=== PATIENT | female | born 1980 | race Caucasian/White ===

== ENCOUNTER 2020-04-14 08:00 | Outpatient (CLI) | payer OTHER ==
[2020-04-14 12:10] LABS: ALBUMIN 4.5 g/dL (3.2-5.5); ALBUMIN/GLOBULIN RATIO 1.5 (1.0-2.2); ALKALINE PHOSPHATASE 45 IU/L (42-121); ALT ALANINE AMINOTRANSFERASE 26 IU/L (10-60); AST ASPARTATE AMINOTRANSFERASE 24 IU/L (10-42); BASOPHILS % (AUTO) 0.4 %; BILIRUBIN,TOTAL 0.8 mg/dL (0.2-1.0); BUN - BLOOD UREA NITROGEN 9 mg/dL (6-20); CALCIUM 8.8 mg/dL (8.5-10.3); CARBON DIOXIDE - CO2 26 mmol/L (21-32); CHLORIDE 104 mmol/L (101-111); CHOL/HDL RATIO 2.9 (<4.4); CHOLESTEROL 192 mg/dL; CREATININE 0.7 mg/dL (0.4-1.0); EOSINOPHILS % (AUTO) 0.7 %; GLUCOSE 91 mg/dL (70-100); HDL CHOLESTEROL 67 mg/dL; HGB - HEMOGLOBIN 13.2 g/dL (12.0-16.0); LDL CHOLESTEROL,CALCULATED 115 mg/dL; LDL/HDL RATIO 1.7 (<4.4); LYMPHOCYTES # (AUTO) 2.3 10^3/uL (1.5-3.5); LYMPHOCYTES % (AUTO) 39.9 %; MEAN CORPUSCULAR HEMOGLOBIN 30.1 pg (27.0-31.0); MEAN CORPUSCULAR HGB CONC 33.1 g/dL (32.0-36.0); MEAN CORPUSCULAR VOLUME 90.9 fL (81.0-99.0); MEAN PLATELET VOLUME 12.5 fL (7.9-10.8); MONOCYTES # (AUTO) 0.5 10^3/uL (0.0-1.0); NEUTROPHILS # (AUTO) 2.9 10^3/uL (1.5-6.6); NEUTROPHILS % (AUTO) 50.8 %; PLT - PLATELET COUNT 135 10^3/uL (130-450); RED BLOOD COUNT 4.39 10^6/uL (4.20-5.40); RED CELL DISTRIBUTION WIDTH 12.7 % (12.0-15.0); SODIUM 139 mmol/L (135-145); TOTAL PROTEIN 7.5 g/dL (6.7-8.2); VLDL CHOLESTEROL 10 mg/dL; WHITE BLOOD COUNT 5.6 x10^3/uL (4.8-10.8)
== END 2020-04-14 23:59 | disposition home or self-care (01) ==
LOC: LAB.WCP 08:00
PROVIDERS: ATTEND Physician Assistant
DX: Z00.00 Encounter for general adult medical examination without abnormal findings (principal)
CPT/HCPCS: 36415; 80053; 80061; 83721; 84443; 85025

== ENCOUNTER 2021-07-31 09:56 | Outpatient (CLI) | payer BC, OTHER ==
[2021-07-31 11:52] LABS: BILIRUBIN,URINE NEGATIVE (NEGATIVE); GLUCOSE, URINE (UA) NEGATIVE (NEGATIVE); KETONES,URINE (UA) NEGATIVE (NEGATIVE); LEUKOCYTE ESTERASE, URINE NEGATIVE (NEGATIVE); NITRITE,URINE NEGATIVE (NEGATIVE); OCCULT BLOOD,URINE NEGATIVE (NEGATIVE); PROTEIN,URINE NEGATIVE (NEGATIVE); UROBILINOGEN,URINE 0.2 (NORMAL) E.U./dL (NORMAL)
[2021-07-31 12:04] LABS: BASOPHILS % (AUTO) 0.4 %; EOSINOPHILS % (AUTO) 0.4 %; HCT - HEMATOCRIT 41.8 % (37.0-47.0); HGB - HEMOGLOBIN 13.7 g/dL (12.0-16.0); LYMPHOCYTES # (AUTO) 2.3 10^3/uL (1.5-3.5); LYMPHOCYTES % (AUTO) 32.2 %; MEAN CORPUSCULAR HEMOGLOBIN 29.3 pg (27.0-31.0); MEAN CORPUSCULAR HGB CONC 32.8 g/dL (32.0-36.0); MEAN CORPUSCULAR VOLUME 89.5 fL (81.0-99.0); MEAN PLATELET VOLUME 12.2 fL (7.9-10.8); MONOCYTES # (AUTO) 0.5 10^3/uL (0.0-1.0); MONOCYTES % (AUTO) 6.9 %; NEUTROPHILS # (AUTO) 4.3 10^3/uL (1.5-6.6); NEUTROPHILS % (AUTO) 59.8 %; PLT - PLATELET COUNT 187 10^3/uL (130-450); RED BLOOD COUNT 4.67 10^6/uL (4.20-5.40); RED CELL DISTRIBUTION WIDTH 12.8 % (12.0-15.0); WHITE BLOOD COUNT 7.2 x10^3/uL (4.8-10.8)
[2021-07-31 12:26] LABS: CLARITY,URINE HAZY (CLEAR)
[2021-07-31 12:27] LABS: ALBUMIN 4.8 g/dL (3.2-5.5); ALBUMIN/GLOBULIN RATIO 1.4 (1.0-2.2); ALKALINE PHOSPHATASE 47 IU/L (42-121); ALT ALANINE AMINOTRANSFERASE 20 IU/L (10-60); AST ASPARTATE AMINOTRANSFERASE 18 IU/L (10-42); BILIRUBIN,TOTAL 0.6 mg/dL (0.2-1.0); BUN - BLOOD UREA NITROGEN 15 mg/dL (6-20); CALCIUM 9.4 mg/dL (8.5-10.3); CARBON DIOXIDE - CO2 27 mmol/L (21-32); CHLORIDE 100 mmol/L (101-111); CHOL/HDL RATIO 2.5 (<4.4); CHOLESTEROL 218 mg/dL; CREATININE 0.8 mg/dL (0.4-1.0); GFR - MDRD 80 (>89); GLUCOSE 95 mg/dL (70-100); HDL CHOLESTEROL 86 mg/dL; LDL CHOLESTEROL,CALCULATED 123 mg/dL; LDL/HDL RATIO 1.4 (<4.4); POTASSIUM 3.9 mmol/L (3.5-5.0); SODIUM 137 mmol/L (135-145); TOTAL PROTEIN 8.3 g/dL (6.7-8.2); TRIGLYCERIDES 45 mg/dL; VLDL CHOLESTEROL 9 mg/dL
[2021-07-31 12:35] LABS: THYROID STIMULATING HORMONE 2.15 uIU/mL (0.34-5.60)
[2021-07-31 13:50] LABS: RBC,URINE 0-5 /HPF (0-5); SQUAMOUS EPITHELIAL CELL,UR FEW Squamous (<= Few); WBC,URINE 0-3 /HPF (0-5)
[2021-07-31 13:51] LABS: AMORPHOUS SEDIMENT,UR Marked /LPF; BACTERIA,URINE Few /HPF (None Seen)
== END 2021-07-31 09:57 | disposition home or self-care (01) ==
LOC: LAB.N 09:56
PROVIDERS: ATTEND Nurse Practitioner
DX: R53.83 Other fatigue (principal); Z13.220 Encounter for screening for lipoid disorders; F32.A Depression, unspecified
CPT/HCPCS: 36415; 80053; 80061; 81001; 83721; 84443; 85025; 87086

== ENCOUNTER 2022-07-16 08:47 | Outpatient (CLI) | payer OTHER ==
[2022-07-16 09:29] LABS: BASOPHILS % (AUTO) 0.7 %; EOSINOPHILS % (AUTO) 0.4 %; HCT - HEMATOCRIT 41.2 % (37.0-47.0); HGB - HEMOGLOBIN 13.2 g/dL (12.0-16.0); LYMPHOCYTES # (AUTO) 1.7 10^3/uL (1.5-3.5); MEAN CORPUSCULAR HEMOGLOBIN 28.6 pg (27.0-31.0); MEAN CORPUSCULAR VOLUME 89.2 fL (81.0-99.0); MEAN PLATELET VOLUME 12.6 fL (7.9-10.8); MONOCYTES # (AUTO) 0.4 10^3/uL (0.0-1.0); MONOCYTES % (AUTO) 8.1 %; NEUTROPHILS # (AUTO) 2.3 10^3/uL (1.5-6.6); NEUTROPHILS % (AUTO) 51.6 %; PLT - PLATELET COUNT 161 10^3/uL (130-450); RED BLOOD COUNT 4.62 10^6/uL (4.20-5.40); RED CELL DISTRIBUTION WIDTH 12.7 % (12.0-15.0); WHITE BLOOD COUNT 4.5 x10^3/uL (4.8-10.8)
[2022-07-16 10:16] LABS: ALBUMIN 4.6 g/dL (3.2-5.5); ALBUMIN/GLOBULIN RATIO 1.5 (1.0-2.2); BILIRUBIN,TOTAL 0.6 mg/dL (0.2-1.0); CALCIUM 9.3 mg/dL (8.5-10.3); CREATININE 0.6 mg/dL (0.4-1.0); POTASSIUM 3.9 mmol/L (3.5-5.0); TOTAL PROTEIN 7.6 g/dL (6.7-8.2)
[2022-07-16 11:57] LABS: BILIRUBIN,URINE NEGATIVE (NEGATIVE); GLUCOSE, URINE (UA) NEGATIVE (NEGATIVE); KETONES,URINE (UA) NEGATIVE (NEGATIVE); LEUKOCYTE ESTERASE, URINE NEGATIVE (NEGATIVE); NITRITE,URINE NEGATIVE (NEGATIVE); OCCULT BLOOD,URINE LARGE (NEGATIVE); PH,URINE 6.5 PH (5.0-7.5); PROTEIN,URINE NEGATIVE (NEGATIVE); UROBILINOGEN,URINE 0.2 (NORMAL) E.U./dL (NORMAL)
[2022-07-16 12:24] LABS: BACTERIA,URINE Few /HPF (None Seen); CLARITY,URINE CLEAR (CLEAR); SQUAMOUS EPITHELIAL CELL,UR FEW Squamous (<= Few); WBC,URINE 0-3 /HPF (0-5)
--- NOTE | 2022-07-16 13:11 | XRAY Report ---
PROCEDURE: Thoracic Spine 2 View INDICATIONS: FLANK PAIN RIGHT TECHNIQUE: 3 views of the thoracic spine were acquired. COMPARISON: None. FINDINGS: Bones: No fractures or dislocations. No suspicious bony lesions. 12 pairs of ribs are noted, and a ppear intact where visualized. Soft tissues: No paravertebral stripe thickening. IMPRESSION: No visualized acute fracture or dislocation. However, occult injury cannot be excluded. Recommend ollie rt interval imaging follow-up in 7-10 days as clinically indicated for additional evaluation. Reviewed by: Carolyn Rm MD on 07/16/2022 1:10 PM PST Approved by: Carolyn Rm MD on 07/16/2022 1:10 PM [facility] Station ID: [id number]
--- NOTE | 2022-07-16 13:11 | XRAY Report ---
PROCEDURE: Chest 2 View X-Ray INDICATIONS: FLANK PAIN RIGHT TECHNIQUE: 2 views of the chest were acquired. COMPARISON: None. FINDINGS: Surgical changes and devices: None. Lungs and pleura: No pleural effusions or pneumothorax. Lungs are clear. Mediastinum: Mediastinal contours are normal. Heart size is normal. Bones and chest wall: No suspicious bony abnormalities. Soft tissues appear unremarkable. IMPRESSION: No acute pulmonary process. Reviewed by: Carolyn Rm MD on 07/16/2022 1:09 PM [facility] Approved by: Carolyn Rm MD on 07/16/2022 1:09 PM [facility] Station ID: [id number]
== END 2022-07-16 08:48 | disposition home or self-care (01) ==
LOC: DI 08:47
PROVIDERS: ATTEND Nurse Practitioner
DX: R10.9 Unspecified abdominal pain (principal); R10.11 Right upper quadrant pain
CPT/HCPCS: 36415; 80053; 81001; 82150; 83690; 85025; 87086

== ENCOUNTER 2022-08-06 06:44 | Outpatient (CLI) | payer OTHER ==
--- NOTE | 2022-08-06 12:26 | Ultrasound Report ---
PROCEDURE: Abdomen Complete INDICATIONS: RIGHT FLANK PAIN, RUQ PAIN TECHNIQUE: Real-time scanning was performed of the abdominal and retroperitoneal organs, with image documentatio n. COMPARISON: None. FINDINGS: Liver: Liver is normal in size and homogeneous in echotexture. Gallbladder: Unremarkable. Biliary ducts: Intrahepatic bile ducts are non-dilated. Extrahepatic bile duct caliber measures 6 m m. Normal is 6-7 mm or less in diameter, or 10 mm or less post-cholecystectomy. Pancreas: Visualized portions of the pancreas are sonographically normal. Spleen: Spleen is normal in size and homogeneous in echotexture. Kidneys: Kidneys are normal in size and echotexture. Right kidney measures 12.9 cm long; left kidne y measures 12.5 cm long. Mild left sided pelvocaliectasis, which does not resolve with micturition. No solid masses. Aorta: Visualized aorta is normal in caliber at less than 3 cm. Iliacs: Proximal common iliac arteries are normal in caliber at less than 2.5 cm. IVC: Intrahepatic inferior vena cava is patent. Miscellaneous: Multiple subserosal uterine fibroids present, largest measuring 4.5 cm. IMPRESSION: Mild left-sided pelvocaliectasis. Hydronephrosis cannot be excluded. Consider cross-sectional imaging to evaluate for stones. 3 subserosal uterine fibroids, largest measuring 4.5 cm. Reviewed by: Edy Cazares on 08/06/2022 12:25 PM PST Approved by: Edy Cazares on 08/06/2022 12:25 PM PST Station ID: [id number]
== END 2022-08-06 06:45 | disposition home or self-care (01) ==
LOC: DI 06:44
PROVIDERS: ATTEND Nurse Practitioner
DX: N28.89 Other specified disorders of kidney and ureter (principal)

== ENCOUNTER 2022-08-14 16:48 | Outpatient (CLI) | payer OTHER ==
--- NOTE | 2022-08-15 17:09 | CT Report ---
PROCEDURE: ABDOMEN/PELVIS WO INDICATIONS: RIGHT FLANK PAIN TECHNIQUE: Noncontrast 5 mm thick sections acquired from the diaphragms to the symphysis. 5 mm coronal and sagi ttal reformats were then performed. For radiation dose reduction, the following was used: automated exposure control, adjustment of mA and/or kV according to patient size. COMPARISON: None. FINDINGS: Image quality: Excellent. ABDOMEN: Lung bases: Lung bases are clear. Heart size is normal. Solid organs: Liver and spleen are normal in size. Gallbladder is normal. Pancreas is normal in co ntours. No adrenal nodules. Kidneys are normal in size, without hydronephrosis or nephrolithiasis. Peritoneum and bowel: Unenhanced bowel loops demonstrate normal wall thickness and caliber. No free fluid or air. Nodes and vessels: No retroperitoneal or mesenteric adenopathy by size criteria. Aorta and inferior vena cava are normal in caliber. Miscellaneous: No ventral hernias. PELVIS: Genitourinary: Bladder wall thickness is normal. In the right pelvis there is a 4.5 x 3.6 axial by 4.1 cm craniocaudal density in the adnexal region. This could very well simply be a loop of nonopacif ied bowel, however on both axial and coronal views it has a masslike appearance. Recommend ultrasound . Miscellaneous: No inguinal hernias or adenopathy. Bones: No suspicious bony lesions. No vertebral body compression fractures. IMPRESSION: 1. No acute abnormality of the abdomen or pelvis. 2. No nephroureterolithiasis. 3. Normal appendix. 4. Possible right pelvic mass versus unopacified normal loop of bowel. Recommend pelvic ultrasound. Reviewed by: Chuck York on 08/15/2022 4:08 PM [facility] Approved by: Chuck York on 08/15/2022 4:08 PM [facility] Station ID: [id number]
== END 2022-08-14 16:49 | disposition home or self-care (01) ==
LOC: DI 16:48
PROVIDERS: ATTEND Nurse Practitioner
DX: R10.9 Unspecified abdominal pain (principal)

== ENCOUNTER 2022-09-03 22:03 | Outpatient (CLI) | payer OTHER ==
--- NOTE | 2022-09-04 08:32 | Ultrasound Report ---
PROCEDURE: Pelvic w/Transvaginal INDICATIONS: UTERINE FIBROIDS TECHNIQUE: Real-time scanning was performed of the pelvic organs, with image documentation. Additional endovagi nal scanning was necessary due to incomplete visualization of the adnexal and endometrial structures by transabdominal scanning. COMPARISON: None. FINDINGS: Uterus: Uterus is anteverted and normal in size at 7.5 x 4.2 x 5 cm. The myometrium is homogeneous. The endometrium measures 13 mm in combined thickness. Multiple intramural, subserosal and peduncul ated fibroids. Largest measures 5.8 x 3.8 x 5.7 cm, in the right lateral position, and is pedunculate d. Ovaries: The right ovary measures 2.8 x 1.8 x 2 cm, with a calculated ovarian volume of 5 cc. The l eft ovary measures 2.7 x 2 x 3.4 cm, with a calculated ovarian volume of 9 cc. The ovaries have a no rmal sonographic appearance. Less than 12 follicles can be seen in each ovary. No adnexal masses ar e seen. Other: No pathologic free abdominal or pelvic fluid. IMPRESSION: Multiple uterine fibroids, largest measuring 5.8 cm. No submucosal fibroids identified. Reviewed by: Edy Cazares on 09/04/2022 8:31 AM PDT Approved by: Edy Cazares on 09/04/2022 8:31 AM PDT Station ID: [id number]
== END 2022-09-03 22:04 | disposition home or self-care (01) ==
LOC: DI 22:03
PROVIDERS: ATTEND Nurse Practitioner
DX: D25.1 Intramural leiomyoma of uterus (principal); D25.2 Subserosal leiomyoma of uterus; R10.11 Right upper quadrant pain

== ENCOUNTER 2022-11-05 10:34 | Outpatient (CLI) | payer OTHER ==
[2022-11-05 10:56] LABS: BASOPHILS % (AUTO) 0.5 %; EOSINOPHILS % (AUTO) 0.5 %; HCT - HEMATOCRIT 39.9 % (37.0-47.0); HGB - HEMOGLOBIN 13.2 g/dL (12.0-16.0); LYMPHOCYTES # (AUTO) 2.7 10^3/uL (1.5-3.5); LYMPHOCYTES % (AUTO) 49.2 %; MEAN CORPUSCULAR HEMOGLOBIN 29.1 pg (27.0-31.0); MEAN CORPUSCULAR HGB CONC 33.1 g/dL (32.0-36.0); MEAN CORPUSCULAR VOLUME 88.1 fL (81.0-99.0); MEAN PLATELET VOLUME 11.8 fL (7.9-10.8); MONOCYTES # (AUTO) 0.4 10^3/uL (0.0-1.0); MONOCYTES % (AUTO) 6.8 %; NEUTROPHILS # (AUTO) 2.4 10^3/uL (1.5-6.6); NEUTROPHILS % (AUTO) 42.8 %; PLT - PLATELET COUNT 180 10^3/uL (130-450); RED BLOOD COUNT 4.53 10^6/uL (4.20-5.40); RED CELL DISTRIBUTION WIDTH 12.8 % (12.0-15.0); WHITE BLOOD COUNT 5.6 x10^3/uL (4.8-10.8)
== END 2022-11-05 10:35 | disposition home or self-care (01) ==
LOC: LAB 10:34
PROVIDERS: ATTEND Obstetrics & Gynecology
DX: Z01.812 Encounter for preprocedural laboratory examination (principal); D25.9 Leiomyoma of uterus, unspecified; N94.6 Dysmenorrhea, unspecified; N92.0 Excessive and frequent menstruation with regular cycle
CPT/HCPCS: 36415; 85025; 86850; 86900; 86901

== ENCOUNTER 2022-11-06 08:04 | Day surgery (SDC) | payer OTHER ==
[2022-11-06] MEDS ORDERED: ceFAZolin 2 GM VIAL ONE (08:09)
[2022-11-06] MEDS ORDERED: LACTATED RINGERS 1,000 ML IV ONE (08:16)
[2022-11-06] MEDS ORDERED: BUPIVACAINE 0.5%-EPI 1:200000 PF 30 ML VIAL ONE (08:21)
[2022-11-06 08:24] LABS: HCG UR QUAL NEGATIVE
--- NOTE | 2022-11-06 09:48 | ANESTHESIA ---
Pre-Anesthesia VS, & Labs - Diagnosis uterine fibroids, dysmenorrhea, menorrhagia - Procedure lap. assisted hysterectomy with alvaro. salpingectomy, cystoscopy Vital Signs: Temp Pulse Resp BP Pulse Ox O2 Flow Rate 36.7 C 67 16 142/89 H 100 0 11/06/22 08:24 11/06/22 08:24 11/06/22 08:24 11/06/22 08:24 11/06/22 08:24 11/06/22 08:24 Height: 5 ft 6 in Weight (kg): 71 kg Body Mass Index: 25.2 BMI Classification: Overweight - NPO >8 hours - Is Patient ?: No - Lab Results Lab results reviewed: Yes Home Medications and Allergies Home Medications: Ambulatory Orders Doxycycline [Vibramycin] 100 mg PO QD 11/01/22 Doxycycline [Vibramycin] 100 mg PO QD 11/01/22 Allergies/Adverse Reactions: Allergies Allergy/AdvReac Type Severity Reaction Status Date / Time No Known Drug Allergies Allergy Verified 11/01/22 14:02 Anes History & Medical History - Anesthetic History Family history of Anesthesia Complications: Denies Family history of Malignant Hyperthermia: Denies - Medical History Cardiovascular: reports: Hypertension Pulmonary: reports: None Gastrointestinal: reports: None Urinary: reports: None Neuro: reports: None Musculoskeletal: reports: None Endocrine/Autoimmune: reports: None Skin: reports: Rosacea, Other Smoking Status: Never smoker History of Cancer?: No Exam General: Alert, Oriented x3, Cooperative, No acute distress Dental: WNL Mouth Openin Fingerbreadth Neck Mobility: Normal Mallampati classification: II Thyromental Distance: 4-6 cm Mental/Cognitive Status: Alert/Oriented X3, Normal for patient Plan Anesthesia Type: General Consent for Procedure(s) Verified and Reviewed: Yes Code Status: Attempt Resuscitation ASA classification: 2-Mild systemic disease Is this case an emergency?: No
[2022-11-06] MEDS ORDERED: ONDANSETRON 4 MG/2 ML VIAL IVP PRN ×2 (09:49→13:38)
[2022-11-06] MEDS ORDERED: fentaNYL 100 MCG/2 ML VIAL IVP PRN (09:49)
[2022-11-06] MEDS ORDERED: ATROPINE ABBOJECT 1 MG/10 ML SYRINGE IVP PRN (09:49)
[2022-11-06] MEDS ORDERED: HYDROmorphone 0.5 MG/0.5 ML SYRINGE IVP PRN (09:49)
[2022-11-06] MEDS ORDERED: NALOXONE 0.4 MG/ML VIAL IVP PRN (09:49)
[2022-11-06] MEDS ORDERED: MORPHINE 2 MG/ML CARPUJECT IVP PRN (09:49)
[2022-11-06] MEDS ORDERED: MIDAZOLAM 2 MG/2 ML VIAL ONE (09:57)
[2022-11-06] MEDS ORDERED: ROCURONIUM 50 MG/5 ML VIAL ONE ×2 (09:57→11:31)
[2022-11-06] MEDS ORDERED: PROPOFOL 200 MG/20 ML VIAL IVP ONE (09:57)
[2022-11-06] MEDS ORDERED: LACTATED RINGERS 1,000 ML IV SCH (10:00)
[2022-11-06] MEDS ORDERED: ACETAMINOPHEN 1,000 MG/100 ML 1,000 MG/100 ML BAG IV ONE (10:38)
[2022-11-06] MEDS ORDERED: DEXAMETHASONE 4 MG/ML VIAL ONE (10:42)
[2022-11-06] MEDS ORDERED: BUPIVACAINE 0.5%-EPI 1:200000 PF 30 ML VIAL SUBQ ONE ×2 (11:09)
[2022-11-06] MEDS ORDERED: SUGAMMADEX 200 MG/2 ML VIAL IVP ONE (12:47)
[2022-11-06] MEDS ORDERED: KETOROLAC 30 MG/ML VIAL ONE (13:26)
[2022-11-06] MEDS ORDERED: LACTATED RINGERS 900 ML IV ONE (13:35)
[2022-11-06] MEDS ORDERED: HYDROmorphone 0.5 MG/0.5 ML SYRINGE ONE (13:52)
[2022-11-06] MEDS: traMADol 50 MG TABLET PO SCH ×2 (14:09→18:34)
[2022-11-06] MEDS ORDERED: traMADol 50 MG TABLET PO ONE (14:12)
[2022-11-06] MEDS ORDERED: ACETAMINOPHEN 1,000 MG/100 ML 1,000 MG/100 ML BAG IV PRN (14:40)
--- NOTE | 2022-11-06 15:18 | ANESTHESIA POST OP EVALUATION ---
Anesthesia Post Eval - Post Anesthesia Eval Vitals: Last Vital Signs Temp 36.2 C L 11/06/22 14:49 Pulse 66 11/06/22 14:49 Resp 16 11/06/22 14:49 BP 141/75 H 11/06/22 14:49 Pulse Ox 99 11/06/22 14:49 O2 Flow Rate 0 11/06/22 08:24 CV Function Including HR & BP: Stable Pain Control: Satisfactory Nausea & Vomiting: Negative Mental Status: Baseline Respiratory Status: Airway Patent Hydration Status: Satisfactory Anesthesia Complications: None
[2022-11-06] MEDS ORDERED: HYDROmorphone 1 MG/ML CARPUJECT IVP ONE (15:40)
--- NOTE | 2022-11-06 16:30 | OPERATIVE REPORT ---
Operative Report - General Procedure Date: 11/06/22 Planned Procedure: Total laparoscopic hysterectomy, bilateral salpingectomy, cystoscopy Pre-Op Diagnosis: Abnormal uterine bleeding, uterine leiomyomata Procedure Performed: Total laparoscopic hysterectomy, bilateral salpingectomy, cystoscopy Post Op Diagnosis: Abnormal uterine bleeding, uterine leiomyomata - Procedure Note Primary Surgeon: Nicole Palafox DO Secondary Surgeon: Sara Gan MD; assistance required for retraction and safe completion Anesthesia Provider: Alba Schmidt CRNA Anesthesia Technique: General ET tube Pathology: Uterus, oviducts Estimated Blood Loss (mL): 200 Urine Output (mL): 500 Indications: Abnormal uterine bleeding, uterine leiomyomata Findings: Multiple leiomyoma Complications: None - Other Other Information/Narrative: Patient taken to OR where GETA obtained without difficulty. Placed in dorsal lit hotomy position and prepped and draped in sterile fashion. [place] speculum placed in vagina and anterior lip of cervix grasped with single tooth tenaculum. Medium VCARE manipulator advanced into uterus. Speculum and tenaculum removed. Attention then turned to abdomen where 5mm skin incision made in umbilical fold. Veress needle carefully introduced into peritoneal cavity. Intraperitoneal placement confirmed with drop test and drop in intraabdominal pressure with CO2 gas insufflation. Trocar and sleeve advanced without difficulty into abdomen where intraabdominal placement confirmed with laparoscope. Two additional 5mm incisions made in pelvis bilaterally and trocars introduced under direct visualization. 0.5% Marcaine injection prior to skin incisions x3. Aforementioned findings noted, multiple leiomyoma noted. Right fallopian tube grasped and LigaSure device used for transection along mesosalpinx. This was repeated on the left fallopian tube. Tubes removed through left 5mm port. Ovarian ligament transected bilaterally with LigaSure. Hemostasis noted. Dissection was carried down to uterine arteries bilaterally with LigaSure. Anterior leaf of broad ligament and bladder flap was created with Ligasure. L hook cautery was used to amputate cervix. Hemostasis ensured. Uterus removed vaginally. Vaginal cuff closed vaginally with series of figure of eight 0 vicryl sutures. Hemostasis noted. Attention then returned to abdomen. Vaginal cuff hemostatic. Pelvis irrigated and suctioned. Hemostasis at all dissection sites. Trocars removed under direct visualization. Pneumoperitoneum released. Umbilical trocar removed. 5mm incisions x3 were closed with 4-0 Monocryl and dermabond. Cystoscopy then performed. Jets noted from ureteral orifices bilaterally. No bleeding, sutures or defects noted in bladder. Vaginal cuff sutures cut. Hemostasis achieved with cautery. Sponge, lap, needle, and instrument counts were correct x2. Patient taken to PACU in stable condition..
[2022-11-06] MEDS ORDERED: DOXYLAMINE 25 MG TABLET PO PRN (17:38)
[2022-11-06] MEDS: KETOROLAC 30 MG/ML VIAL IVP SCH (18:34)
[2022-11-06] MEDS: oxyCODONE 5 MG TABLET PO PRN (22:57)
[2022-11-07] MEDS: traMADol 50 MG TABLET PO SCH ×2 (00:04→05:48)
[2022-11-07] MEDS: KETOROLAC 30 MG/ML VIAL IVP SCH ×2 (00:04→05:48)
[2022-11-07] MEDS: oxyCODONE 5 MG TABLET PO PRN (09:00)
[2022-11-07 09:11] VITALS: BP 131/75
--- NOTE | 2022-11-07 09:17 | Discharge Plan ---
Discharge Plan Problem Reviewed?: Yes Disposition: Home, Self Care Condition: Good Diet: Regular Activity Restrictions: Pelvic rest Shower Restrictions: No Driving Restrictions: Yes (No driving with narcotics) Weight Bearing: Full Weight Instruction Topics: Hysterectomy Laparoscopic Dc No Smoking: If you smoke, Please STOP! Call for help. Follow-up with: Nicole Palafox DO [Provider Admit Priv/Credential] -
--- NOTE | 2022-11-07 09:39 | DISCHARGE SUMMARY ---
"Discharge Summary Admit Date: 11/06/22 Discharge Date: 11/07/22 Discharging Provider: Nicole Palafox DO Code Status: Attempt Resuscitation Condition at Discharge: Good Discharge Disposition: 01 Home, Self Care Discharge Facility Name: [facility] - DIAGNOSES Admission Diagnoses: Abnormal uterine bleeding, uterine leiomyoma - HPI History of Present Illness: 41yo G0 with AUB-uterine leiomyoma admitted 11/06/22 for scheduled TLH/BS/cystoscopy. - CONSULTS | PROCEDURES Procedures: TLH/BS/Cystoscopy - HOSPITAL COURSE Hospital Course: 41yo G0 with AUB-uterine leiomyoma admitted 11/06/22 for scheduled TLH/BS/cystoscopy. See operative report for uncomplicated procedures. She was observed overnight. Pain controlled. Minimal vaginal spotting. Ambulating. Voiding adequately. Tolerating regular diet. Denies chest pain, shortness of breath. Feels ready to go home today. Postoperative care reviewed. - ALLERGIES Allergies/Adverse Reactions: Allergies Allergy/AdvReac Type Severity Reaction Status Date / Time No Known Drug Allergies Allergy Verified 11/01/22 14:02 - MEDICATIONS Home Medications: Ambulatory Orders Medication Instructions Recorded Confirmed Doxycycline [Vibramycin] 100 mg PO QD 11/01/22 11/06/22 - PHYSICAL EXAM AT DISCHARGE General Appearance: positive: No acute distress Eyes Bilateral: positive: EOMI Respiratory: positive: No respiratory distress Abdomen: positive: Other (Appropriately tender, incisions x3 c/d/i) Skin: positive: Color nml Extremities: positive: Non-tender Neurologic/Psychiatric: positive: Oriented x3 - QUALITY (Female Hip Fx Only) Was patient sent home on osteoporosis medication?: No - FOLLOW UP Follow Up: 11/16/22914 with - TIME SPENT Time Spent in Discharge (Minutes): 25"
== END 2022-11-07 09:00 | disposition home or self-care (01) ==
LOC: SDS 08:04 → MS2 13:33 → SDS 11-07 09:00
PROVIDERS: ATTEND Obstetrics & Gynecology
PROC: 0UT94ZZ Resection of Uterus, Percutaneous Endoscopic Approach (ICD-10-PCS; principal; 2022-11-06 09:30)
PROC: 0UT74ZZ Resection of Bilateral Fallopian Tubes, Percutaneous Endoscopic Approach (ICD-10-PCS; 2022-11-06 09:30)
DX: D25.1 Intramural leiomyoma of uterus (principal); D25.2 Subserosal leiomyoma of uterus; N94.6 Dysmenorrhea, unspecified; N92.0 Excessive and frequent menstruation with regular cycle; N93.9 Abnormal uterine and vaginal bleeding, unspecified
CPT/HCPCS: 58571; 81025; A9270; J0131; J1170; J7120